=== PATIENT | male | born 1975 | race Hispanic/Latino ===

== ENCOUNTER 2024-03-28 06:54 | Day surgery (SDC) | payer BC ==
[2024-03-25 16:24] LABS: Absolute Eosinophils 0.1 K/uL (0-0.5); Absolute Lymphocytes (CBC) 2.3 K/uL (0.7-4.9); Absolute Monocytes 0.6 K/uL (0.1-1.3); Absolute Neutrophil 3.6 K/uL (1.8-8.0); Basophils % 0.4 % (0-1.3); Eosinophils % 2.3 % (0-4.4); Hematocrit 39.5 % (39.6-49.0); Hemoglobin 13.3 g/dL (13.6-17.9); Lymphocytes % 34.8 % (15.3-44.8); MCH 31.8 pg (27.0-35.0); MCHC 33.6 g/dL (32.0-36.0); MCV 94.5 fL (80-100); MPV 9.9 fL (7.6-11.3); Monocytes % 8.4 % (3.3-12.3); Neutrophils % 54.1 % (41.7-73.7); Nucleated Red Blood Cells % 0.1 % (0-0); Platelets 226 thou/uL (152-406); RBC Red Blood Cell Count 4.18 M/uL (4.33-5.43); Red Cell Distribution Width 13.5 % (12.1-15.2)
[2024-03-25 16:33] LABS: Anion Gap 6.4 mEq/L (5.0-15.0); Potassium 4.4 mEq/L (3.5-5.1)
[2024-03-28] MEDS ORDERED: Ringers Lactate 1,000 ML IV ONE (06:58)
[2024-03-28 07:32] VITALS: O2SAT 100
[2024-03-28] MEDS ORDERED: LIDOCAINE 1% MPF 30 ML VIAL ONE (07:49)
[2024-03-28] MEDS ORDERED: propofoL 200 MG/20 ML VIAL IV ONE (07:49)
[2024-03-28] MEDS ORDERED: GLYCOPYRROLATE 0.2 MG/ML SYR ONE (07:49)
[2024-03-28 10:01] VITALS: TEMP 96.9
[2024-03-28 10:02] VITALS: BP 111/83
--- NOTE | 2024-03-29 17:58 | EKG ---
Test Date: 2024-03-25 Test Time: 15:59:36 Grape Picker: ELIU MEASUREMENT RESULTS: Intervals: Rate: 55 NH: 140 QRSD: 86 QT: 368 QTc: 352 Imn[place]: P: 48 NH: 140 QRS: 79 T: 44 INTERPRETIVE STATEMENTS: Sinus bradycardia Otherwise normal ECG No previous ECG available for comparison Electronically Signed On 03-29-24 17:49:49 CDT by Alvaro Reese
== END 2024-03-28 09:45 | disposition home or self-care (01) ==
LOC: OR 06:54
PROVIDERS: ATTEND Surgery
PROC: 0DJD8ZZ Inspection of Lower Intestinal Tract, Via Natural or Artificial Opening Endoscopic (ICD-10-PCS; principal; 2024-03-28 08:30)
DX: Z12.11 Encounter for screening for malignant neoplasm of colon (principal); K64.4 Residual hemorrhoidal skin tags; K64.8 Other hemorrhoids
CPT/HCPCS: 93005; 85025; 80048; 36415; 45378; J2704; J2001; J7120